=== PATIENT | female | born 1995 | race Caucasian/White ===

== ENCOUNTER → 2017-04-17 | Outpatient (CLI) | payer OTHER ==
[2017-04-17 17:14] LABS: HEMATOCRIT 37.6 % (37-47); MEAN CELL VOLUME 89.1 fL (80-100); MEAN CORPUSCULAR HEMOGLOBIN 30.1 pg (25-34); MEAN CORPUSCULAR HGB CONC 33.8 g/dl (32-36); MEAN PLATELET VOLUME 10.3 fL (7.4-10.4); PLATELET COUNT 200 K/uL (130-400); RED BLOOD COUNT 4.22 M/uL (4.2-5.4); WHITE BLOOD COUNT 7.06 K/uL (4.8-10.8)
[2017-04-17 18:03] LABS: COMPLETE YES; EOSINOPHIL % 0.9 %; LYMPH ABS # 0.32 K/uL (1.2-3.4); LYMPHOCYTE % 4.6 %; NEUTROPHILS % 22.2 %; VARIANT LYM ABS # 4.58 K/uL; VARIANT LYMPHOCYTE % 64.9 %
[2017-04-17 18:11] LABS: LYME DISEASE AB IGG NEG (NEG); LYME DISEASE AB IGM NEG (NEG)
[2017-04-17 18:15] LABS: ANTI-STREP O SCR: 5YRS OR > POS IU/ml (<200 IU)
[2017-04-17 18:17] LABS: ANTI-STREP O TITRE: 5YR OR > 200 IU/ml (<200 IU)
== END | disposition home or self-care (01) ==
LOC: C.LAB1850 16:33
PROVIDERS: ATTEND Nurse Practitioner Family
DX: R53.83 Other fatigue (principal); R50.9 Fever, unspecified; R53.81 Other malaise; J02.9 Acute pharyngitis, unspecified